=== PATIENT | female | born 1960 ===

== ENCOUNTER 2018-01-24 20:38 | Emergency (ER) | payer OTHER ==
--- NOTE | 2018-01-24 21:39 | ED ---
Throat Pain/Nasal Congestion - HPI Summary HPI Summary: pain in posterior left upper molar that has a cap and a root canal in it, pain began two days ago. went to her dentist today who offered ner no analgesics, no xrays were done. gave her a course of zithromax - History of Current Complaint Chief Complaint: UCDentalProblem Time Seen by Provider: 01/24/18 21:23 Hx Obtained From: Patient Onset/Duration: Sudden Onset, Lasting Days Severity: Severe - Epiglottits Risk Factors Epiglottis Risk Factors: Negative - Allergies/Home Medications Allergies/Adverse Reactions: Allergies Allergy/AdvReac Type Severity Reaction Status Date / Time cephalexin [From Keflex] Allergy Rash Verified 01/24/18 21:28 Penicillins Allergy Unknown Verified 01/24/18 21:28 Reaction Details Home Medications: Home Medications Azithromycin TAB* [Zithromax TAB (Z-MELINA) 250 mg #6 tabs] 1 tab DAILY 01/24/18 [ History Confirmed 01/24/18] Escitalopram Oxalate [Lexapro] 20 mg BEDTIME 01/24/18 [History Confirmed ] traZODone TAB* [Desyrel TAB*] 25 mg PO BEDTIME 01/24/18 [History Confirmed 01/24] PMH/Surg Hx/FS Hx/Imm Hx Previously Healthy: Yes Endocrine/Hematology History: Denies: Hx Anticoagulant Therapy, Hx Diabetes, Hx Thyroid Disease Cardiovascular History: Reports: Hx Hypertension - MANAGED WITHOUT MEDS Denies: Hx Congestive Heart Failure, Hx Deep Vein Thrombosis, Hx Hypercholesterolemia, Hx Myocardial Infarction, Hx Pacemaker/ICD, Hx Peripheral Vascular Disease Respiratory History: Denies: Hx Asthma, Hx Chronic Obstructive Pulmonary Disease (COPD), Hx Lung Cancer, Hx Pneumonia, Hx Pulmonary Embolism GI History: Denies: Hx Gall Bladder Disease, Hx Gastrointestinal Bleed, Hx Ulcer, Hx Urosepsis History: Denies: Hx Kidney Stones, Hx Renal Disease Musculoskeletal History: Reports: Hx Arthritis Denies: Hx Osteoporosis Sensory History: Denies: Hx Cataracts, Hx Contacts or Glasses, Hx Glaucoma Opthamlomology History: Denies: Hx Cataracts, Hx Contacts or Glasses, Hx Glaucoma Neurological History: Denies: Hx Dementia, Hx Headaches, Hx Migraine, Hx Seizures, Hx Transient Ischemic Attacks (TIA) Psychiatric History: Reports: Hx Anxiety, Hx Depression Denies: Hx Schizophrenia, Hx Bipolar Disorder Infectious Disease History: Denies: Traveled Outside the [place] in Last 30 Days - Family History Known Family History: Positive: None - Social History Alcohol Use: Daily Hx Substance Use: No Substance Use Type: Reports: None Hx Tobacco Use: No Smoking Status (MU): Never Smoked Tobacco Review of Systems Constitutional: Negative Eyes: Negative Positive: Dental Pain Cardiovascular: Negative Respiratory: Negative Gastrointestinal: Negative Musculoskeletal: Negative Skin: Negative All Other Systems Reviewed And Are Negative: Yes Physical Exam Triage Information Reviewed: Yes Vital Signs Reviewed: Yes Appearance: Positive: Well-Appearing Skin: Positive: Warm, Dry Head/Face: Positive: Normal Head/Face Inspection ENT: Positive: Other - tender left upper posterior molar to palpation Dental: Positive: Percussion Tenderness @ Cardiovascular: Positive: Normal EENT Course/Dx - Diagnoses Provider Diagnoses: Pain, dental Discharge - Sign-Out/Discharge Documenting (check all that apply): Patient Departure All imaging exams completed and their final reports reviewed: No Studies - Discharge Plan Condition: Fair Disposition: HOME Prescriptions: Oxycodone HCl/Acetaminophen [Percocet 5-325 mg Tablet] 1 each PO Q6H PRN 2 Days #8 tablet MDD 4 PRN Reason: Pain (Dental) Patient Education Materials: Dental Abscess (ED) Referrals: Kashif Garza MD [Primary Care Provider] - - Billing Disposition and Condition Condition: FAIR Disposition: Home
[2018-01-24] MEDS ORDERED: HYDROcodone/ACETAMIN 5-325 MG* 1 TAB PO ONE (21:41)
[2018-01-24 21:46] VITALS: BP 143/85
== END 2018-01-24 21:56 | disposition home or self-care (01) ==
LOC: UCCORT 20:38
DX: K08.89 Other specified disorders of teeth and supporting structures (principal); Z88.0 Allergy status to penicillin; Z88.1 Allergy status to other antibiotic agents
CPT/HCPCS: 99212; G0463